=== PATIENT | female | born 1940 | race Asian ===

== ENCOUNTER → 2017-08-07 12:27 | Outpatient (CLI) | payer MEDICARE, OTHER, SELFPAY ==
--- NOTE | 2017-08-07 | DI.MRI.S_ITS ---
PROCEDURE: MR HAND RT WO/W CON INDICATIONS: arthropathy - right TECHNIQUE: Coronal and axial T1 spin echo and T2 fast spin echo with fat saturation. Post-contrast coronal and axial T1 spin echo with fat saturation images through the right hand and wrist. Fiducial marker is placed on the right hand, as confirmed with the interventional technologist COMPARISON: [facility], CR, HAND 3V RIGHT, 02/08/2010, 15:36. [facility], CR, XR HAND 3+ VIEWS BILATERAL, 06/28/2017, 12:17. FINDINGS: Image quality: Suboptimal evaluation due to uncontrollable patient movement despite multiple attempts. This is reportedly due to severe pain during the examination. Bones and cartilage: There is severe thumb interphalangeal, first CMC and triscaphe joint degeneration. No definite signal abnormalities to suggest erosions are seen. Synovium: No abnormal enhancement or synovitis identified. Soft tissues: No joint effusion or tenosynovitis is present. IMPRESSION: No definite marrow signal changes or enhancement to suggest erosive arthropathy. Degenerative joint disease as above. Dictated by: Ben Monterroso M.D. on 08/07/2017 at 14:30 Approved by: Ben Monterroso M.D. on 08/07/2017 at 14:48
--- NOTE | 2017-08-07 | DI.MRI.S_ITS ---
PROCEDURE: MR HAND LT WO/W CON INDICATIONS: arthropathy - left TECHNIQUE: Coronal and axial T1 spin echo and T2 fast spin echo with fat saturation. Post-contrast coronal and axial T1 spin echo with fat saturation images through the left hand and wrist. Fiducial marker is placed on the right hand as confirmed by the processing technologist COMPARISON: [facility], MR, UP EXT WITH, 04/12/2010, 14:01. [facility], CR, XR HAND 3+ VIEWS BILATERAL, 06/28/2017, 12:17. FINDINGS: Image quality: Excellent. Bones and cartilage: There are areas of T1 hypointensity and T2 hyperintensity involving the fifth metacarpal head, second and third metacarpal heads. There are corresponding areas of lucencies seen on the comparison radiographs in these locations as well as enhancement on the postcontrast pulse sequence and findings are likely reflective of erosions. Similar appearing signal changes are present in the lunate. There is severe first CMC and triscaphe joint degeneration. Synovium: Mild diffuse enhancement suggestive of synovitis around the proximal carpal row Soft tissues: No evidence of tenosynovitis. No pathologic joint effusion. IMPRESSION: Small erosions involving the second, third and fifth metacarpal heads, as well as the lunate. Please correlate to clinical exam findings. Dictated by: Ben Monterroso M.D. on 08/07/2017 at 14:49 Approved by: Ben Monterroso M.D. on 08/07/2017 at 15:04
[2017-08-07 13:15] LABS: Alanine Aminotransferase 20 IU/L (9-52); Albumin 4.1 g/dL (3.5-5.0); Albumin Globulin Ratio 1.2 (1.0-2.8); Alkaline Phosphatase 59 U/L (38-126); Aspartate Aminotransferase 23 IU/L (14-36); Bilirubin Total 0.5 mg/dL (0.2-1.3); Blood Urea Nitrogen 21 mg/dL (7-17); Calcium 9.2 mg/dL (8.4-10.2); Carbon Dioxide 30 mmol/L (22-32); Chloride 104 mmol/L (98-107); Estimated Glomerular Filt Rate > 60.0 mL/min (>60); Globulin 3.4 g/dL (1.7-4.1); Glucose 93 mg/dL (80-110); HEMOLYSIS 28 (0-50); Potassium 4.4 mmol/L (3.4-5.1); Sodium 143 mmol/L (137-145); Total Protein 7.5 g/dL (6.3-8.2)
== END ==
PROVIDERS: Family Provider Internal Medicine; PCP Internal Medicine; Visit Provider Internal Medicine Rheumatology
DX: M19.041 Primary osteoarthritis, right hand (principal); M06.9 Rheumatoid arthritis, unspecified
CPT/HCPCS: 36415; 73220; 80053; A9579

== ENCOUNTER → 2018-08-24 11:31 | Outpatient (CLI) | payer MEDICARE, OTHER, SELFPAY ==
--- NOTE | 2018-08-24 | DI.MRI.S_ITS ---
PROCEDURE: MR SHOULDER RT WO CON INDICATIONS: Strain of muscle, fascia and tendon of long head TECHNIQUE: Noncontrast oblique coronal T2 fast spin echo with fat saturation, oblique sagittal T1 spin echo and T2 fast spin echo with fat saturation, axial T1 spin echo and T2 fast spin echo with fat saturation through the shoulder. COMPARISON: [facility], MR, SHOULDER WITHOUT CONTRAST, 07/08/2014, 13:17. FINDINGS: Image quality: Excellent. Rotator cuff: Postsurgical changes related to rotator cuff repair. There is a recurrent full-thickness tear of the critical zone of the supraspinatus tendon, image 9 series 8. This measures approximately 1 cm in the transverse left longitudinal dimension. There is background supraspinatus tendinopathy, and/or postoperative appearance. Infraspinatus interstitial tearing is noted. There is also thickening of the infraspinatus, which could reflect postsurgical change versus tendinopathy. The teres minor appears intact. The subscapularis tendon is not well visualized, presumably tendinopathy versus postoperative appearance. Atrophy of the supraspinatus and infraspinatus, as well subscapularis muscles has progressed since the prior study. Bones and bursae: No bone marrow contusions or fractures. Moderate glenohumeral and acromioclavicular joint degeneration. The acromion demonstrates conventional anatomy, without an os acromiale. Capsule and soft tissues: Enlarged, heterogeneous appearance of the anteroinferior labrum with heterogeneous intrasubstance signal change. The long head of the biceps tendon not well visualized and could be ruptured versus status post biceps tenodesis The rotator interval appears normal, without fibrosis. The coracohumeral ligament is normal in thickness. IMPRESSION: Status post rotator cuff repair. 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 Infraspinatus interstitial tearing as well as tendinopathy and/or superimposed postoperative sequela. Slight interval progression in rotator cuff muscle atrophy as above. Enlarged heterogeneous appearance of the anteroinferior labrum suggesting chronic tear, although this could reflect postsurgical sequela/fibrosis. Please correlate clinically. This finding appears more prominent since the prior study. Long head biceps tendon not well visualized which could be related to previous biceps tenodesis versus rupture. Subscapularis tendon not well seen, which could be postoperative in nature versus ill-defined full-thickness tear. This is also more conspicuous since the prior study. Dictated by: Ben Monterroso M.D. on 08/24/2018 at 12:36 Approved by: Ben Monterroso M.D. on 08/24/2018 at 12:46
== END ==
PROVIDERS: Family Provider Internal Medicine; PCP Internal Medicine; Visit Provider Orthopaedic Surgery
DX: M75.121 Complete rotator cuff tear or rupture of right shoulder, not specified as traumatic (principal); S46.111D Strain of muscle, fascia and tendon of long head of biceps, right arm, subsequent encounter
CPT/HCPCS: 73221